=== PATIENT | male | born 1995 | race Caucasian/White ===

== ENCOUNTER 2022-07-23 08:05 | Emergency (ER) | payer OTHER ==
[~2022-07-23] VITALS: Ht 185.4 cm; Wt 88.6 kg
[2022-07-23 08:05] VITALS: BP 123/76
[2022-07-23] MEDS ORDERED: ACET-683 PO (08:26)
[2022-07-23] MEDS ORDERED: BACT800T5 PO (09:44)
== END 2022-07-23 09:51 | disposition home or self-care (01) ==
LOC: M ED 08:05
DX: L02.31 Cutaneous abscess of buttock (principal); Z86.14 Personal history of Methicillin resistant Staphylococcus aureus infection; F17.200 Nicotine dependence, unspecified, uncomplicated